=== PATIENT | female | born 1945 | race Caucasian/White ===

== ENCOUNTER 2024-07-03 09:21 | Inpatient (IN) | payer MEDICARE, OTHER, SELFPAY ==
--- NOTE | 2024-06-25 07:31 | HPS.HSE ---
Family Physician
-
Family Physician: Ely Aden,
Chief Complaint
-
PARR
History of Present Illness
Ms. Machado is a very pleasant 79 yof that presents with severe aortic stenosis well-known to our TAVR team. Her echocardiogram from 11/2021 is notable for a p/m 90/47, KT 0.75, mild AI, trace MR, EF 70%. Her cardiac catheterization demonstrated no
significant CAD. Initial evaluation and discussion with the heart team recommended conservative management. Patient continued to have some dyspnea and was brought back to the heart team for re-evaluation. She resides at [facility] and
participates in daily activities. Her mobility is limited due to orthopedic issues and she wheelchair bound, she also has severe kyphosis of neck causing a chronic downward gaze. After extensive discussion with the heart and the patient, it has
been concluded the patient will proceed with TF TAVR utilizing a 23 mm S3. Repeat echocardiogram from 06/25/2024 is significant for EF 70-75%, aortic valve P/M 89/64, KT 0.4, mild AI, pk Eddie 4.72, mild to moderate MS with MV MG 5, mild TR, PAP
40-45. BUN/Creatinine from preadmission labs 36/1.9 with GFR 26.53, labs compared to 01/21/2024 BUN/Creatinine 30/1.6 with GFR 31.
Assessed in preadmission testing. Patient will hold Xarelto x 48 prior to TAVR and take aspirin while Xarelto held. She will arrive to the [facility] at 0930 with transportation from [facility]. Medication instructions and time of
arrival written down and sent with patient to [facility]. Prescription for Cefdinir for UTI sent with patient. (Spoke with CHARLA Luo). Patient states she continues with nausea and states she has not had as much difficulty swallowing pills.
Allowed for and answered questions.
Medical History
Past Medical History
Past Medical History: Reports CHF (HFpEF), Hypothyroidism, Valvular Disease (Aortic stenosis) and Other (RLE DVT, lymphedema, hyperlipidemia, severe Kyphosis, depression, anxiety, CKD3, hypertensive retinopathy, cataracts, RUL pulmonary nodule,
moderate sliding hernia, wall thickening of distal esophagus, severe chronic compression fracture of T12, T9, L4)
Past Surgical History: Reports Gynocological (SCOTT, BSO), Orthopedic ((R) 2nd toe amputation, TRHR, (R) carpal tunnel sx) and Tonsilectomy
Social History
Tobacco: Non-smoker
Alcohol: None
Drug: None
Living: [facility]
Family History
Family History: Diabetes and Hypertension
Allergies / Home Medications
Allergies reflects when Allergies were last updated in [facility].
Home Medications with original date entered in [facility]
Allergy/Medication List:
Allergic to adhesive tape
Baclofen 10 MG Tablet 0.5 tablet Orally Once a day
Bumetanide 2 MG Tablet 1 tablet Orally bid and give 2mg in the afternoon MWF
Caltrate 600+D3(Calcium Carb-Cholecalciferol) 600-800 MG-UNIT Tablet 1 tablet with a meal Orally Once a day
Cyclobenzaprine HCl 5 MG Tablet 1 tablet at bedtime as needed Orally bid
Divalproex Sodium ER 250 MG Tablet Extended Release 24 Hour 1 tablet Orally Once a day , Notes to Pharmacist: am
Divalproex Sodium ER 500 MG Tablet Extended Release 24 Hour 1 tablet Orally Once a day , Notes to Pharmacist: pm
Famotidine 20 MG Tablet 1 tablet Orally bid
Gabapentin 100 MG Capsule 2 capsules Orally TID
Klor-Con M20(Potassium Chloride Flor ER) 20 MEQ Tablet Extended Release 1 tablet with food Orally qid
Lipitor(Atorvastatin Calcium) 10 MG Tablet 1 tablet Orally Once a day
Multivitamin(Multiple Vitamin) - Tablet 1 tablet Orally Once a day
Omeprazole 40 MG Capsule Delayed Release 1 capsule Orally bid
oxyBUTYnin Chloride 5 MG Tablet 1 tablet Orally bid
Synthroid(Levothyroxine Sodium) 100 MCG Tablet 1 tablet in the morning on an empty stomach Orally Once a day
Voltaren 1 % Gel as directed Externally
Xarelto 20 MG Tablet 1 tablet with food Orally Once a day
Review of Systems
-
History Source: Patient and [facility]
Constitutional: Reports No Symptoms
EENT: Reports No Symptoms
Respiratory: Reports No Symptoms
Cardiac: Reports No Symptoms
Abdomen/GI: Reports Nausea (chronic)
: Reports No Symptoms
Skin: Reports No Symptoms
Neurological: Reports No Symptoms
Psych: Reports No Symptoms
Physical Exam
Physical Exam
General: Well Developed, Well Nourished and No Apparent Distress
Respiratory: Clear
Cardiac: Regular Rhythm and Murmur (IV/ LISA)
Breast: Deferred by me
GI: Soft and Non Tender
Genito-urinary: Deferred by me
Musculoskeletal: Edema, Left Lower Extremity (Lymphedema), Edema, Right Lower Extremity (lymphedema) and Other (profound Kyphotic head with downward gaze)
Neuro: Awake and Alert
Psych: Calm
Data Reviewed
-
CT Scan: Report Reviewed by me and Discussed with Physician (TAVR CT scan reviewed with the heart team)
Medical Tests (Nuc Med, Echo, EKG etc): Report Reviewed by me and Discussed with Physician (echocardiogram and cath report reviewed and discussed with heart team)
Lab Data: Labs Reviewed by me
Old Records: Requested and Reviewed
Impression/Plan
-
IMPRESSION/PLAN:
Aortic Stenosis
(R) TF TAVR planned with Drs. oSto and Raghavendra utilizing a 23mm S3
Hold Xarelto x 48 hours (last dose Saturday 06/30) Aspirin 325mg (07/01), Aspirin 81 mg Sunday (07/02) and (07/03).
D/c aspirin when Xarelto is resumed
Repeat echo (06/25)
Echocardiogram POD#1/#30
Cardiac rehab consult
T/c OT/PT consult
Cefdinir 300 mg PO daily x 5 days for UTI
Labs
-
Labs:
WBC 5.2 10^3/uL (4.8-10.8) 06/25/24 12:17
RBC 3.67 10^6/uL (4.20-5.40) L 06/25/24 12:17
Hgb 9.1 g/dL (12.0-16.0) L 06/25/24 12:17
Hct 29.7 % (37.0-47.0) L 06/25/24 12:17
Plt Count 303 10^3/uL (130-400) 06/25/24 12:17
Sodium 144 mmol/L (135-145) 06/25/24 12:17
Potassium 4.7 mmol/L (3.5-5.1) 06/25/24 12:17
Chloride 97 mmol/L (98-107) L 06/25/24 12:17
Carbon Dioxide 33 mmol/L (22-30) H 06/25/24 12:17
BUN 36 mg/dl (7-17) H 06/25/24 12:17
Creatinine 1.9 mg/dL (0.6-1.0) H 06/25/24 12:17
eGFR 26.53 06/25/24 12:17
Glucose 104 mg/dl (70-99) H 06/25/24 12:17
Calcium 9.2 mg/dl (8.4-10.2) 06/25/24 12:17
Lau-G-Wppwjwdfwim Pept 1050 pg/ml 06/25/24 12:17
Albumin 4.1 g/dl (3.5-5.0) 06/25/24 12:17
[2024-06-25 12:01] VITALS: BMI 39.5
[2024-06-25 12:58] LABS: % Eosinophils 3.3 % (0-6); % Immature Granulocytes 0.2 % (0-0.5); % Lymphocytes 29.1 % (20.5-51.1); % Neutrophils 52.4 % (42.2-75.2); Absolute Basophils 0.1 10^3/uL (0-0.2); Absolute Eosinophils 0.2 10^3/uL (0-0.7); Absolute Lymphocytes 1.5 10^3/uL (1.2-3.4); Absolute Monocytes 0.7 10^3/uL (0.1-0.6); Absolute Neutrophils 2.7 10^3/uL (1.4-6.5); Hematocrit 29.7 % (37.0-47.0); Hemoglobin 9.1 g/dL (12.0-16.0); Mean Corp Hgb Conc. 30.6 g/dL (33.0-37.0); Mean Corpuscular Hgb 24.8 pg (27.0-31.0); Mean Corpuscular Volume 80.9 fL (81.0-99.0); Mean Platelet Volume 10.4 fL (7.4-10.4); Nucleated Red Blood Cells % 0 %; Platelet Count 303 10^3/uL (130-400); Red Blood Cell Count 3.67 10^6/uL (4.20-5.40); Red Cell Dist. Width 16.8 % (11.5-14.5); White Blood Cell Count 5.2 10^3/uL (4.8-10.8)
[2024-06-25 13:03] LABS: Urine Albumin Negative (Neg - Trace); Urine Bilirubin Negative (Negative); Urine Character Slightly Cloudy (Clear); Urine Color Yellow; Urine Glucose Negative (Negative); Urine Ketone Negative (Negative); Urine Leukocyte 1+ (Negative); Urine Nitrite Positive (Negative); Urine Occult Blood Negative (Negative); Urine Urobilinogen Negative (Neg - 1+)
[2024-06-25 13:08] LABS: INR 1.36; PT 16.9 Sec (11.4-14.6)
[2024-06-25 13:09] LABS: APTT 32.1 Sec (23.4-35.0)
[2024-06-25 13:10] LABS: ALT (SGPT) 15 U/L (0-35); AST (SGOT) 23 U/L (14-36); Albumin 4.1 g/dl (3.5-5.0); Alkaline Phosphatase 94 U/L (38-126); Blood Urea Nitrogen 36 mg/dl (7-17); Calcium 9.2 mg/dl (8.4-10.2); Carbon Dioxide 33 mmol/L (22-30); Chloride 97 mmol/L (98-107); Direct Bilirubin 0.2 mg/dl (0.0-0.4); Estimated Creatinine Clearance 27 ml/min; Glucose 104 mg/dl (70-99); Potassium 4.7 mmol/L (3.5-5.1); Sodium 144 mmol/L (135-145); Total Bilirubin 0.5 mg/dl (0.2-1.3); eGFR 26.53
[2024-06-25 13:14] LABS: Urine Urothelial Cell 0-2 /LPF (FEW)
[2024-06-25 13:15] LABS: Urine Bacteria Many (Negative); Urine White Cell >100 /HPF (0-5)
[2024-06-25 13:18] LABS: NT-proBNP 1050 pg/ml
[2024-06-25 13:36] LABS: Glycohemoglobin (HgbA1c) 7.3 % (4.0-5.6)
--- NOTE | 2024-06-25 15:20 | CM ---
"Chart reviewed. Met with the patient in PAT. 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 Reviewed preoperative and postoperative instructions and restrictions, along with showering guidelines. Gave patient 2 soaps. I also called Wolfgang Luo"charge nurse, at [phone] and reviewed instructions on medications and showering. Abhishek is the contact at [facility], . Patient is wheelchair bound and needs assistance with ADLS. Plan is for the patient to go back to [facility]. "
[2024-07-03] VITALS (17 sets, daily range): BP systolic 104–128; BP diastolic 52–67; BMI 39.1
--- NOTE | 2024-07-03 08:16 | PTCARENOTE ---
Call placed to [facility] to speak with staff to complete the pt's medication reconciliation prior to her procedure. A staff member Valerio RN stated 'she had her thyroid medicine and a baby aspirin sometime between
5:00-6:00 this morning.' Valerio refused to provide any other medication information including wether the Xarelto has been held since Saturday 06/30. While attempting to explain the importance of having this information prior to the pt's procedure Valerio
hung up the phone. A call was placed to administration at the [facility] and Soniya TIAN informed.
--- NOTE | 2024-07-03 10:16 | CM ---
Patient in OR today for planned TAVR procedure.
Reviewed initial assessment. Pt. is a long-term resident at [facility]. She is wheelchair bound and requires assist for ADLs.
DC plan is to return to [facility].
CM to follow.
[2024-07-03 12:36] LABS: ACT-LR - POC 234 Seconds (116-155)
[2024-07-03 12:45] LABS: ACT-LR - POC 284 Seconds (116-155)
[2024-07-03 13:07] LABS: ACT-LR - POC 290 Seconds (116-155)
--- NOTE | 2024-07-03 13:34 | W.PN.UPDATE ---
Update Note
Progress Note Update
Reviewed Ms. Machado with the heart team in the preTAVR SDM and confirmed a 23 mm S3 via right TF access. Ms. Machado will resume Xarelto and discontinue aspirin when Xarelto resumed post TAVR. #23 mm S3 (serial# [id number]) successfully deployed via
right transfemoral access. Post implant MG 9mmHg.
[2024-07-03] MEDS: ANCEF 10 IV (16:46)
[2024-07-03] MEDS: NEURONTIN 200 MG PO ×2 (16:47→22:18)
[2024-07-03] MEDS: DICLOFENAC 1% TOPICAL GEL TOPICAL (16:47)
--- NOTE | 2024-07-03 17:21 | ITS.CL.TAVR ---
Suppression Crew Leader - TAVR Report
TAVR PRocedure
Procedure Report:
TRANSCATHETER AORTIC VALVE REPLACEMENT REPORT
Date: 07/03/2024
Referring physician: Edi Rose M.D.
Preop diagnosis: Severe aortic valve stenosis.
Postop diagnosis: Severe aortic valve stenosis
Procedure: Aortic balloon valvuloplasty using a #18 [place] valvuloplasty balloon. Transcatheter aortic valve replacement (TAVR) using a #23 Cowan CHITRA S3 Ultra.
Operators: Miguel Soto DO, Chaka Escalante M.D., Ramírez Stevens M.D.
Findings: Severely calcified and stenotic aortic valve.
Anesthesia: Conscious sedation was provided by the anesthesia staff.
Estimated blood loss: Negligible.
Complications: None.
Condition: Stable
Procedure:
The patient was brought to the cardiac laboratory director after consent and was prepped and draped in standard sterile fashion. Conscious sedation was provided by the anesthesia staff. After a 'Time Out,' bilateral common femoral arteries and the left
common vein were access using a modified Seldinger technique with a micropuncture kit under ultrasound guidance. A 6 Samoan sheath was placed in the left femoral vein. Angiography performed through the micropuncture sheath confirmed satisfactory
arterial placement in the left common femoral artery. The micropuncture sheath was replaced with a 6Fr sheath in the left MANAGER COMMODITIES. Angiography through the micropuncture kit confirmed satisfactory arterial placement in the right common femoral artery.
The right MANAGER COMMODITIES was dilated with an 8FR dilator and preclosed with two Perc-Close devices. An 8Fr sheath was placed in the RCFA.
Unfortunately, during the placement of the other sheaths in the left side, the 8 Samoan right common femoral sheath was dislodged. We attempted to rewire the artery through the sheath, but the artery had completely exited the vessel lumen. The
right common femoral artery was closed using the predeployed Perclose sutures. Manual pressure was held with good hemostasis.
A temporary pacing wire was advanced through the left femoral vein and into the right ventricle. The pacemaker demonstrated good capture and was set to back up. A 5Fr pigtail catheter was advanced through the left femoral sheath and into the
distal aorta. Distal aortography with runoff of the right iliofemoral system was performed showing excellent hemostasis within the right common femoral artery at the site of prior access. The pigtail was advanced into the ascending aorta and
seated in the right coronary cusp. Angiography confirmed co-planar angles.
The right common femoral artery was reaccessed at a slightly lower position given the thankfully low bifurcation of the right common femoral artery. After satisfactory positioning with a micropuncture kit, the artery was preclosed with 2 additional
Perclose sutures. An 8 Samoan sheath was placed in the right common femoral artery. Unfortunately, there was significant oozing around the 8 Samoan sheath, expediting our need to place the TAVR sheath to tamponade the vessel. An AL-1 catheter was
advanced through the 8Fr sheath, the J wire was exchanged for an Amplatz Superstiff wire and the catheter and the 8 Fr sheath was removed. The 14 Fr Cowan E-sheath was inserted over the wire and into the descending aorta. Heparin 8000 units was
given. The CHITRA S3 was prepared on the back table. Orientation was confirmed by both physicians. The AL-1 catheter was re-advanced through the E-sheath to the level of the ascending aorta. The Superstiff wire was removed and a soft tip
straight wire was advanced through the AL-1. The straight tip wire was used to cross the aortic valve and the catheter was advanced into the left ventricle. The straight wire was removed and an Amplatz Extrastiff wire with curved proximal end was
advanced through the catheter and into the left ventricle. The wire was seated in the apex and the catheter was removed. ACT was checked and confirmed to be > 250 seconds.
An #18 [place] valvuloplasty balloon was advanced over the Extra-stiff wire and into the aortic annulus. Valvuloplasty was performed under rapid pacing with good balloon expansion. The valvuloplasty balloon was removed.
The valve was advanced over the Extrastiff wire and into the descending aorta. The balloon was withdrawn and the valve was mounted on the balloon. The valve was advanced over the aortic arch and into the aortic valve annulus. The pusher device
was withdrawn to allow for balloon expansion. Low volume aortography confirmed good position of the valve. The valve was deployed during rapid ventricular pacing. Echocardiography and aortography confirmed a good result with trace aortic valve
insufficiency and a 9 mmHg mean gradient. The valve deployment system was removed. The Cowan E sheath was then removed and hemostasis obtained with the two Perc-Close sutures. Final angiography demonstrated no evidence of ileofemoral
dissection/perforation and good runoff below the common femoral artery. The pacemaker and the pigtail catheter were removed. The left femoral artery sheath was removed using a 6 Samoan Angio-Seal. The left femoral venous sheath was removed and
manual pressure was applied with excellent hemostasis.
Radiation
Dose (mGy): 987.71
DAP (cm2.Gy): 84.4468
Fluoroscopy time (minutes): 17.1
TAVR Echo Gradient (mmHg): 9
LV (s/x, mmHg): Not obtained.
TAVR Cath Gradient (mmHg): Not obtained.
Conclusions:
1. Successful placement of #23 Chitra S3 Ultra aortic valve via right transfemoral approach with no acute complications.
2. Dr. Stevens was present for all significant portions of the procedure.
Miguel Soto DO, FACC, FACP
Copy to: Ely Aden D.O.
[2024-07-03] MEDS: ANCEF 5 IV (17:56)
[2024-07-03] MEDS: LIPITOR 10 MG PO (17:56)
[2024-07-03] MEDS: DICLOFENAC 1% TOPICAL GEL 2 GRAM TOPICAL ×2 (18:04→22:19)
--- NOTE | 2024-07-03 18:42 | PTCARENOTE ---
Received pt post TAVR. Vss,GCS 15. Nasal cannula at 2 liters w/ pulse ox of >96%. Orders noted. Neurological checks per MD order. B/L groin sites w/ dressings intact, no redness, swelling or hematoma.
[2024-07-03] MEDS: BenGay-Like 1 APPLIC TOPICAL (20:39)
[2024-07-03] MEDS: FLEXERIL 5 MG PO (20:39)
[2024-07-03] MEDS: DITROPAN 5 MG PO (20:40)
[2024-07-03] MEDS: PROTONIX 40 MG PO (20:40)
[2024-07-03] MEDS: DEPAKOTE ER (24 HR RELEASE) 500 MG PO (22:18)
[2024-07-03] MEDS: LIORESAL 5 MG PO (22:18)
[2024-07-03] MEDS: PEPCID 20 MG PO (22:18)
--- NOTE | 2024-07-03 23:23 | PTCARENOTE ---
Addendum entered by Alex Cr RN 07/03/24 23:50:
Maalox given for indigestion, see mar.
Original Note:
assumed care of patient at 2300. AAOx3. neuro intact. NSR 80s. bp 132/87. L groin CDI. R groin-continued oozing. dressing changed by prior RN. sandbag reapplied. + pulses/edema noted. patient denies any pain. denies SOB. complains of
indigestion-requested hayley alison. reviewed plan of care with patient and verbalized understanding. educated patient to inform RN with any changes. call kirk within reach.
[2024-07-03] MEDS: MAALOX 30 ML PO (23:48)
[2024-07-04] VITALS (8 sets, daily range): BP systolic 98–146; BP diastolic 53–73; BMI 35.5
--- NOTE | 2024-07-04 02:00 | PTCARENOTE ---
R groin dressing saturated. 10 minutes manual pressure held by RN. another 30 minutes of manual pressure held by Breonna MORGAN PA. steri strip applied. hemostasis pad, gauze/tegaderm. small hematoma pressed out. currently-groin site soft, dressing CDI.
+ pulses.
[2024-07-04 04:33] LABS: Hematocrit 24.8 % (37.0-47.0); Hemoglobin 8.1 g/dL (12.0-16.0); Mean Corp Hgb Conc. 32.7 g/dL (33.0-37.0); Mean Corpuscular Hgb 25.5 pg (27.0-31.0); Mean Platelet Volume 10.7 fL (7.4-10.4); Platelet Count 240 10^3/uL (130-400); Red Blood Cell Count 3.18 10^6/uL (4.20-5.40); Red Cell Dist. Width 15.9 % (11.5-14.5); White Blood Cell Count 9.1 10^3/uL (4.8-10.8)
[2024-07-04 04:55] LABS: Blood Urea Nitrogen 32 mg/dl (7-17); Calcium 8.7 mg/dl (8.4-10.2); Carbon Dioxide 30 mmol/L (22-30); Chloride 91 mmol/L (98-107); Estimated Creatinine Clearance 40 ml/min; Glucose 141 mg/dl (70-99); Magnesium 1.8 mg/dl (1.6-2.3); Potassium 4.1 mmol/L (3.5-5.1); Sodium 136 mmol/L (135-145); eGFR 41.83
--- NOTE | 2024-07-04 05:15 | PTCARENOTE ---
patient complaining of itchy perineum overnight. purewick removed at 0001. patient continues to complain. Breonna BELLO aware-fungal cream ordered. perineum care provided by both RN and PCT multiple times. no rash noted at this time. instructed
patient to use bed clarke. + UTI as of 06/25/24-per medical history. per PA, patient treated for UTI preop.
--- NOTE | 2024-07-04 06:04 | W.PN.CT ---
Today's Communication / Plan
-
-pod #1
-mild persistent oozing at R groin, no pain - tx with Innoseal patch, manual pressure for 30 min and sandbag
-c/o 'itching' with voiding, tried ketoconazole cream. Had Ecoli UTI preop- was treated with Omnicef
-in nsr 80s, no phill or pauses
-pOx 87-88% on RA and 92-96% on 2L
-Echo today
-current meds (Xarelto, Lipitor, Bumex 3mg bid, KCL, Pepcid, Protonix bid, Depakote, Flexeril, Baclofen)
-possible d/c (resides at [facility])
Assessment / Plan
-
- Severe symptomatic - s/p R transfemoral TAVR with placement of #23 Chitra S3 Ultra aortic valve on 07/03/24, pod #1
- Intraop TTE: trace aortic valve insufficiency and a 9 mmHg mean gradient.
- HTN/HLD
- Chronic systolic and diastolic CHF
- EF 60-65%
- Dysphagia/GERD
- RLE DVT with chronic anticoagulation (on Xarelto at home)
- CKD 3b (baseline Cr 1.9)
- Kyphosis, severe
- Ambulatory dysfunction (resides in half-way [facility])
- Chronic acquired lymphedema
- Large sliding hiatal hernia
- DDD
- Bipolar
- Hypothyroidism
- Anxiety/Depression
- Class 2 obesity, BMI 39)
- Chronic pain syndrome
- Mild cognitive impairment
Discussed patient care with: Nursing and Care Team
Subjective
Procedure
- s/p R transfemoral TAVR with placement of #23 Chitra S3 Ultra aortic valve on 07/03/24
-
Date of Service: July 03, 2024
Objective Data
-
Lab Results
06/25/24 12:17
06/25/24 12:17
PT 16.9 Sec (11.4-14.6) H 06/25/24 12:17
INR 1.36 06/25/24 12:17
APTT 32.1 Sec (23.4-35.0) 06/25/24 12:17
Vital Signs
Vital Signs
Temp Pulse Resp BP Pulse Ox
97.5 F 77 20 128/55 92
07/03/24 19:24 07/03/24 22:30 07/03/24 19:24 07/03/24 22:30 07/03/24 22:30
CT Intake/Output/Weight
07/03/24 07/03/24 07/04/24
06:59 18:59 06:59
Intake Total 1500 / 1500
Balance 1500 / 1500
SaO2: 92
Physical Exam
-
General: Awake and AOx3
Cardiovascular: Regular rate & rhythm
Respiratory: Decreased Breath Sounds
Incision: Other (groins are nontende, no hematoma b/l. R groin with small amount persistent subcutaneous oozing, small hematoma- improved with manual compression)
Extremities: Edema +1 (1+ DP palpable b/l)
Data Reviewed
-
Lab Results: Results Reviewed
Medications: Active Meds Reviewed
Chest X-Ray: Report Reviewed and Image Reviewed
ECG: Report Reviewed and Image Reviewed
--- NOTE | 2024-07-04 07:10 | W.PN.CT.SURG ---
CT Surgery Operative Note
-
DOS: 07.03.2024
Preop diagnosis: Severe aortic valve stenosis.
Postop diagnosis: Severe aortic valve stenosis
Procedure: Aortic balloon valvuloplasty using a #18 [place] valvuloplasty balloon. Transcatheter aortic valve replacement (TAVR) using a #23 Cowan CHITRA S3 Ultra.
Operators: Miguel Soto DO, Chaka Escalante M.D., Ramírez Stevens M.D.
Findings: Severely calcified and stenotic aortic valve.
Anesthesia: Conscious sedation was provided by the anesthesia staff.
Estimated blood loss: Negligible.
Complications: None.
Condition: Stable
Procedure:
The patient was brought to the cardiac label tacker after consent and was prepped and draped in standard sterile fashion. Conscious sedation was provided by the anesthesia staff. After a 'Time Out,' bilateral common femoral arteries and the left
common vein were access using a modified Seldinger technique with a micropuncture kit under ultrasound guidance. A 6 Andorran sheath was placed in the left femoral vein. Angiography performed through the micropuncture sheath confirmed satisfactory
arterial placement in the left common femoral artery. The micropuncture sheath was replaced with a 6Fr sheath in the left LEATHER CURRIER. Angiography through the micropuncture kit confirmed satisfactory arterial placement in the right common femoral artery.
The right LEATHER CURRIER was dilated with an 8FR dilator and preclosed with two Perc-Close devices. An 8Fr sheath was placed in the RCFA.
Unfortunately, during the placement of the other sheaths in the left side, the 8 Andorran right common femoral sheath was dislodged. We attempted to rewire the artery through the sheath, but the artery had completely exited the vessel lumen. The
right common femoral artery was closed using the predeployed Perclose sutures. Manual pressure was held with good hemostasis.
A temporary pacing wire was advanced through the left femoral vein and into the right ventricle. The pacemaker demonstrated good capture and was set to back up. A 5Fr pigtail catheter was advanced through the left femoral sheath and into the
distal aorta. Distal aortography with runoff of the right iliofemoral system was performed showing excellent hemostasis within the right common femoral artery at the site of prior access. The pigtail was advanced into the ascending aorta and
seated in the right coronary cusp. Angiography confirmed co-planar angles.
The right common femoral artery was reaccessed at a slightly lower position given the thankfully low bifurcation of the right common femoral artery. After satisfactory positioning with a micropuncture kit, the artery was preclosed with 2 additional
Perclose sutures. An 8 Andorran sheath was placed in the right common femoral artery. Unfortunately, there was significant oozing around the 8 Andorran sheath, expediting our need to place the TAVR sheath to tamponade the vessel. An AL-1 catheter was
advanced through the 8Fr sheath, the J wire was exchanged for an Amplatz Superstiff wire and the catheter and the 8 Fr sheath was removed. The 14 Fr Cowan E-sheath was inserted over the wire and into the descending aorta. Heparin 8000 units was
given. The CHITRA S3 was prepared on the back table. Orientation was confirmed by both physicians. The AL-1 catheter was re-advanced through the E-sheath to the level of the ascending aorta. The Superstiff wire was removed and a soft tip
straight wire was advanced through the AL-1. The straight tip wire was used to cross the aortic valve and the catheter was advanced into the left ventricle. The straight wire was removed and an Amplatz Extrastiff wire with curved proximal end was
advanced through the catheter and into the left ventricle. The wire was seated in the apex and the catheter was removed. ACT was checked and confirmed to be > 250 seconds.
An #18 [place] valvuloplasty balloon was advanced over the Extra-stiff wire and into the aortic annulus. Valvuloplasty was performed under rapid pacing with good balloon expansion. The valvuloplasty balloon was removed.
The valve was advanced over the Extrastiff wire and into the descending aorta. The balloon was withdrawn and the valve was mounted on the balloon. The valve was advanced over the aortic arch and into the aortic valve annulus. The pusher device
was withdrawn to allow for balloon expansion. Low volume aortography confirmed good position of the valve. The valve was deployed during rapid ventricular pacing. Echocardiography and aortography confirmed a good result with trace aortic valve
insufficiency and a 9 mmHg mean gradient. The valve deployment system was removed. The Cowan E sheath was then removed and hemostasis obtained with the two Perc-Close sutures. Final angiography demonstrated no evidence of ileofemoral
dissection/perforation and good runoff below the common femoral artery. The pacemaker and the pigtail catheter were removed. The left femoral artery sheath was removed using a 6 Andorran Angio-Seal. The left femoral venous sheath was removed and
manual pressure was applied with excellent hemostasis.
Radiation
Dose (mGy): 987.71
DAP (cm2.Gy):84.4468
Fluoroscopy time (minutes):17.1
TAVR Echo Gradient (mmHg):9
LV (s/x, mmHg):Not obtained.
TAVR Cath Gradient (mmHg):Not obtained.
Conclusions:
1. Successful placement of #23 Chitra S3 Ultra aortic valve via right transfemoral approach with no acute complications.
2. Dr. Stevens was present for all significant portions of the procedure.
Dr Stevens
[2024-07-04] MEDS: THERAGRAN 1 TABLET PO (08:28)
[2024-07-04] MEDS: KCL 20 MEQ PO ×4 (08:28→22:09)
[2024-07-04] MEDS: OSCAL CAL 500 1000 MG PO (08:29)
[2024-07-04] MEDS: SYNTHROID 100 MCG PO (08:29)
[2024-07-04] MEDS: DEPAKOTE ER (24 HR RELEASE) 250 MG PO (08:29)
[2024-07-04] MEDS: BUMEX 3 MG PO ×2 (08:30→17:18)
[2024-07-04] MEDS: FLEXERIL 5 MG PO ×2 (08:31→19:36)
[2024-07-04] MEDS: NIZORAL 2% CREAM 1 APPLIC TOPICAL (08:33)
[2024-07-04] MEDS: PROTONIX 40 MG PO ×2 (08:33→19:36)
[2024-07-04] MEDS: NEURONTIN 200 MG PO ×3 (08:33→22:09)
[2024-07-04] MEDS: BenGay-Like 1 APPLIC TOPICAL ×2 (08:34→19:36)
[2024-07-04] MEDS: DICLOFENAC 1% TOPICAL GEL 2 GRAM TOPICAL ×4 (08:34→22:10)
--- NOTE | 2024-07-04 09:54 | PTCARENOTE ---
Assumed care of pt from night RN. Pt received awake and alert, Ox3. VSs, CM shows NSR 90's, POX 93-95% on 3 l n/c. Fungal cream applied to jose manuel area for itching. Right groin intact, old drg stable. Pt speech garbled which is her baseline.
Taking pills with thin liquids. She offers no c/o pain or discomfort at this time. Turned q 2h for comfort.
[2024-07-04] MEDS: DITROPAN 5 MG PO ×2 (10:02→19:37)
--- NOTE | 2024-07-04 10:54 | CM ---
Addendum entered by Charlotte Olson 07/04/24 14:28:
Mrs. Machado is not ready for transfer back to [facility] today. She maybe ready for transfer tomorrow. Telephone call to [facility] Admission to update them on tentative discharge date. Nurse will have to call report for them to take her
back on Sunday. Spoke with transfer center who states [facility] will provide BLS ambulance and charge wheelchair van rate. She has her own wheelchair here. Case Management will cover the cost of transportation. Will need to tell transfer
center to bill [facility] Case Management. Updated Mrs. Machado regarding discharge plans. Medical work-up in progress. The discharge plan is to return to [facility] when medically stable.
Addendum entered by Charlotte Olson 07/04/24 14:28:
Gave him the Cardiothoracic Surgery Educational Booklet.
Original Note:
Reviewed chart. Met with Mrs. Machado to review discharge plans. She states she is feeling well. She maybe able to return to [facility] soon. She states she can ambulated short distances with a walker. She states she also uses a
wheelchair. She states the staff assist her her ADLS. Telephone call to [facility] Admission yesterday to update them regarding possible discharge date. The telephone call for report is ([phone]) and the fax number is
([phone]). Medical work-up in progress. The discharge plan is to return to [facility] when medically stable.
[2024-07-04] MEDS: LASIX 40 MG IV (12:28)
--- NOTE | 2024-07-04 12:44 | PTCARENOTE ---
Lasix 40 mg IV given as ordered.
--- NOTE | 2024-07-04 13:09 | W.PN.ANS.POP ---
Anesthesia Post Operative
- Anesthesia Post Op Note
Vital Signs Stable-See Nursing Note: Yes
Airway Patent: Yes
Adequate Pain Control: Yes
Change in Mental Status: No
Current Postoperative Nausea & Vomiting: No
Anesthesia Complications: No
General Anesthetic Recall: No
Unplanned Admission: No
Post Op Hydration Adequate: Yes
--- NOTE | 2024-07-04 13:48 | W.PN.CD ---
Today's Communication / Plan
-
Check UA.
[facility] US.
Agree with IV diuresis.
Discharge planning (likely tomorrow).
Impression / Plan
-
Impression/Plan: 79 y/o female with severe DDD/cervical spine disease, severe kyphoscoliosis, chronic lymphedema, HTN, CKD3 and severe aortic valve stenosis admitted for elective TAVR.
#Severe
-Chronic.
-S/P #23 Cowan CHITRA S3 TAVR via right common femoral approach.
-Procedure complicated by dislodged 8Fr sheath, closed with perclose devices, then reaccessed lower in the BLOCK CLEANER.
-Telemetry is uneventful.
-Antithrombotic therapy with rivaroxaban.
-Given hold overnight, progressive anemia and tenderness, we will check a femoral artery US to r/o PSA/AVF.
#Urogenital pruritis/Overactive bladder
-Acute.
-Check UA.
-CTS ordered ketoconazole cream.
-Continue oxybutynin.
#HFpEF
-Acute on chronic.
-IV furosemide 40 mg given today.
-Continue home bumetanide.
#Hx of DVT
-Chronic.
-Therapeutic anticoagulation with rivaroxaban.
#CKD3
-Stable/improved.
-Creatinine 1.3 (prior baseline 1.9).
#Hyperlipidemia
-Chronic.
-Continue atorvastatin.
#Chronic lymphedema
#Bipolar
#Osteoporosis
Subjective/Interval History:
Overnight, [employer] held pressure on left groin for some oozing.
She still complains of some local tenderness.
She is also complaining of urogenital pruritis but denies dyruria.
She remains hypoxic on 2LNC.
Hbg has dropped from 9.1 --> 8.1.
DATA:
TTE, 07/04/2024:
CONCLUSIONS
Hyperdynamic left ventricular systolic function. Left ventricular ejection
fraction is 70-75%.
Stage II diastolic dysfunction suggestive of abnormal relaxation and increased
filling pressures.
s/p TAVR. Cowan Chitra 23. Peak/mean gradients are 27/15mmHg. No aortic
regurgitation is seen.
No pericardial effusion.
Compared to 07/03/24: prior TAVR gradients were 16/9 mmHg, with trace AR.
TAVR, 07/03/2024:
Conclusions:
1. Successful placement of #23 Chitra S3 Ultra aortic valve via right transfemoral approach with no acute complications.
2. Dr. Stevens was present for all significant portions of the procedure.
Physical Exam
Vital Signs/Labs
Vital Signs
Temp Pulse Resp BP Pulse Ox
36.9 C 94 20 146/73 95
07/04/24 11:23 07/04/24 12:30 07/04/24 11:23 07/04/24 11:26 07/04/24 12:30
07/03/24 07/04/24 07/05/24
11:59 11:59 11:59
Actual Weight 100 kg 90.8 kg
07/04/24 03:49
07/04/24 03:49
PT 16.9 Sec (11.4-14.6) H 06/25/24 12:17
INR 1.36 06/25/24 12:17
APTT 32.1 Sec (23.4-35.0) 06/25/24 12:17
Magnesium 1.8 mg/dl (1.6-2.3) 07/04/24 03:49
06/25/24
12:17
Mrz-Q-Sfwzagpgkmi Pept 1050
Physical Exam
Constitutional: No acute distress and Comfortable
EENT: Anicteric and Moist mucous membranes
Cardiovascular: Rhythm & rate is regular, JVD pressure is normal, Pedal edema present (Chronic, non-pitting.), S1S2 is normal and Murmur/rub/gallop absent
Respiratory: Respiratory effort normal, Lungs clear to auscul., Wheeze Absent, Crackles Absent and Rhonchi Absent
GI: Soft, Distention absent, Flat, Non tender and Normal bowel sounds
Neuro/Psych: AO x 3
Other: Cath Site (Left femoral access site is C/D/I. Right femoral access site is covered with a dressing, mildly tender to palpation.)
Data Reviewed
-
Date of Service: July 04, 2024
Medical Decision Making: Reviewed Test Results, Tests Ordered, Independent Historian Assessment, Test Interpretation and Review of Case with other Provider
EKG: Tracing Personally Visualized and interpreted and Report Reviewed by me
Echo: Tracing Personally Visualized and interpreted and Report Reviewed by me
X-Ray/CT/US/MRI/NUC/PET: Image Personally Visualized and interpreted and Report Reviewed by me
Medical Tests (PFT, Pathology etc): Image Personally Visualized and interpreted and Report Reviewed by me
Labs: Labs Reviewed by me
Old Records: Reviewed
[2024-07-04 16:37] LABS: Urine Albumin Negative (Neg - Trace); Urine Bilirubin Negative (Negative); Urine Character Clear (Clear); Urine Color Yellow; Urine Glucose Negative (Negative); Urine Ketone Negative (Negative); Urine Leukocyte Trace (Negative); Urine Nitrite Negative (Negative); Urine Occult Blood Negative (Negative); Urine Specific Gravity 1.005 (<1.030); Urine Urobilinogen Negative (Neg - 1+)
[2024-07-04 16:53] LABS: Urine Bacteria Few (Negative); Urine Red Blood Cell 0-2 /HPF (0-2); Urine Urothelial Cell 0-2 /LPF (FEW); Urine White Cell 0-2 /HPF (0-5)
[2024-07-04] MEDS: XARELTO 20 MG PO (17:19)
[2024-07-04] MEDS: LIPITOR 10 MG PO (17:21)
--- NOTE | 2024-07-04 20:39 | PTCARENOTE ---
Pt. received at change of shift. Pt. seen and assessed in room. Pt. AOx3, 4L NC O2, continuous pulse ox reading 93-96%. VS WNL. Tele reading NSR in the 80s. No complaints of pain at this time. Call kirk within reach. Continuing to monitor at this
time.
[2024-07-04] MEDS: LIORESAL 5 MG PO (22:08)
[2024-07-04] MEDS: DEPAKOTE ER (24 HR RELEASE) 500 MG PO (22:09)
[2024-07-04] MEDS: PEPCID 20 MG PO (22:10)
[2024-07-05 02:35] VITALS: BP 131/59
[2024-07-05 02:37] VITALS: BP 131/59
[2024-07-05 02:40] VITALS: BMI 34.6
[2024-07-05 05:25] LABS: Hematocrit 25.3 % (37.0-47.0); Hemoglobin 8.2 g/dL (12.0-16.0); Mean Corp Hgb Conc. 32.4 g/dL (33.0-37.0); Mean Corpuscular Hgb 25.2 pg (27.0-31.0); Mean Corpuscular Volume 77.8 fL (81.0-99.0); Mean Platelet Volume 10.4 fL (7.4-10.4); Platelet Count 215 10^3/uL (130-400); Red Blood Cell Count 3.25 10^6/uL (4.20-5.40); Red Cell Dist. Width 16.4 % (11.5-14.5); White Blood Cell Count 9.1 10^3/uL (4.8-10.8)
[2024-07-05 05:48] LABS: Blood Urea Nitrogen 31 mg/dl (7-17); Calcium 8.8 mg/dl (8.4-10.2); Carbon Dioxide 36 mmol/L (22-30); Chloride 94 mmol/L (98-107); Estimated Creatinine Clearance 40 ml/min; Glucose 149 mg/dl (70-99); Magnesium 1.7 mg/dl (1.6-2.3); Potassium 3.7 mmol/L (3.5-5.1); Sodium 141 mmol/L (135-145); eGFR 46.05
--- NOTE | 2024-07-05 06:56 | W.PN.CT ---
Today's Communication / Plan
-
-pod #2
-looks and feels better
-groins appear stable, soft b/l, no hematoma. s/p R groin US 07/04- report pending
-Echo 07/04: AV Peak/mean gradients are 27/15mmHg. No aortic regurgitation is seen
-diuresed 07/04 (UO unmeasured/incontinent)
-wean off O2 as tolerated
-possible d/c
Assessment / Plan
-
- Severe symptomatic - s/p R transfemoral TAVR with placement of #23 Chitra S3 Ultra aortic valve on 07/03/24, pod #2
- Intraop TTE: trace aortic valve insufficiency and a 9 mmHg mean gradient.
- HTN/HLD
- Chronic systolic and diastolic CHF
- EF 60-65%
- Dysphagia/GERD
- RLE DVT with chronic anticoagulation (on Xarelto at home)
- CKD 3b (baseline Cr 1.9)
- Kyphosis, severe
- Ambulatory dysfunction (resides in skilled nursing [facility])
- Chronic acquired lymphedema
- Large sliding hiatal hernia
- DDD
- Bipolar
- Hypothyroidism
- Anxiety/Depression
- Class 2 obesity, BMI 39)
- Chronic pain syndrome
- Mild cognitive impairment
Echo 07/04/24:
Hyperdynamic left ventricular systolic function. Left ventricular ejection fraction is 70-75%.
Stage II diastolic dysfunction suggestive of abnormal relaxation and increased filling pressures.
s/p TAVR. Cowan Chitra 23. Peak/mean gradients are 27/15mmHg. No aortic regurgitation is seen.
No pericardial effusion.
Compared to 07/03/24: prior TAVR gradients were 16/9 mmHg, with trace AR.
Discussed patient care with: Nursing and Care Team
Subjective
Procedure
- s/p R transfemoral TAVR with placement of #23 Chitra S3 Ultra aortic valve on 07/03/24
-
Date of Service: July 05, 2024
Objective Data
-
PT 16.9 Sec (11.4-14.6) H 06/25/24 12:17
INR 1.36 06/25/24 12:17
APTT 32.1 Sec (23.4-35.0) 06/25/24 12:17
Vital Signs
Vital Signs
Temp Pulse Resp BP Pulse Ox
98.1 F 85 20 131/59 95
07/05/24 02:37 07/05/24 02:37 07/05/24 02:37 07/05/24 02:37 07/05/24 02:37
CT Intake/Output/Weight
07/04/24 07/04/24 07/05/24
06:59 18:59 06:59
Intake Total 650 / 2150 950 / 950
Output Total 200 / 200 725 / 725
Balance 450 / 1950 225 / 225
SaO2: 95
Physical Exam
-
General: Awake and AOx3
Cardiovascular: Regular rate & rhythm, No Murmurs and No Rub
Respiratory: Decreased Breath Sounds
Incision: Other (both groins are soft, nontender. R groin with bruising. No hematoma b/l)
Extremities: Other (trace edema b/l)
Data Reviewed
-
Lab Results: Results Reviewed
Medications: Active Meds Reviewed
Chest X-Ray: Report Reviewed and Image Reviewed
ECG: Report Reviewed and Image Reviewed
[2024-07-05 07:09] VITALS: BP 124/56
[2024-07-05] MEDS: SYNTHROID 100 MCG PO (07:09)
[2024-07-05] MEDS: FLEXERIL 5 MG PO (08:37)
[2024-07-05] MEDS: MAGNESIUM OXIDE 500 MG PO (08:37)
[2024-07-05] MEDS: PROTONIX 40 MG PO (08:37)
[2024-07-05] MEDS: OSCAL CAL 500 1000 MG PO (08:37)
[2024-07-05] MEDS: NEURONTIN 200 MG PO (08:37)
[2024-07-05] MEDS: BUMEX 3 MG PO (08:37)
[2024-07-05] MEDS: THERAGRAN 1 TABLET PO (08:38)
[2024-07-05] MEDS: FLUSH (NSS) 1 FLUSH IV (08:38)
[2024-07-05] MEDS: DEPAKOTE ER (24 HR RELEASE) 250 MG PO (08:38)
[2024-07-05] MEDS: KCL 20 MEQ PO ×2 (08:38→13:31)
[2024-07-05] MEDS: BenGay-Like 1 APPLIC TOPICAL (08:39)
[2024-07-05] MEDS: NIZORAL 2% CREAM 1 APPLIC TOPICAL (08:39)
[2024-07-05] MEDS: DICLOFENAC 1% TOPICAL GEL 2 GRAM TOPICAL ×2 (08:40→13:32)
--- NOTE | 2024-07-05 10:35 | PTCARENOTE ---
The patient is aaox3 but forgetful at times. Vital signs are stable. NSR is noted on the monitor. 90% on RA. Her lungs are clear with an occasional moist cough. Notable kyphosis in upper back/neck. BL groin site dressing are c/d/i. The surrounding
skin BL is ecchymotic but soft.
--- NOTE | 2024-07-05 10:56 | W.DCSUMMARY ---
Discharge Summary
Discharge Data
Date of Admission: 07/03/24
Date of Discharge: 07/05/24
Total time spent discharging patient (in min): 28
-
Pending Results: No
Hospital Course
Primary care physician:
Dr. Ely Tavares
Outpatient concrete precast moulder:
Dr. Miguel Hu
Inpatient consultants:
CBC
Procedures:
1. Right transfemoral transcatheter aortic valve replacement with #23 JUSTIN S3 ultra aortic valve
Primary Diagnosis:
1. Severe aortic stenosis
Secondary Diagnoses:
1. Ambulatory dysfunction
2. Dysphagia
3. Chronic lymphedema
4. Hypothyroidism
5. Hypertension
6. Right lower extremity DVT
7. Chronic kidney disease stage III
8. Severe kyphosis
9. Large sliding hiatal hernia
10. Anxiety
11. Morbid obesity
HPI: 79-year-old female presented electively on 07/03 for a transfemoral TAVR.
Hospital course:
Patient presented electively on 07/03 for a transfemoral TAVR. Procedure went well in the Still Operator and was in the Still Operator recovery area she remained stable and was sent to IVU for the remainder of her recovery. Her right groin was mildly oozy and
overnight manual pressure was held. On 07/04 postoperative day #1 patient was diuresed with an additional 40 mg of IV Lasix. Due to her right groin being tender and ultrasound was performed and it was stable. A postoperative echocardiogram was
also done which showed a hyperdynamic LV function with EF 70-75% and the new aortic valve peak/mean gradients were 27/15 mmHg. On 07/05, postoperative day #2 patient remained stable and was deemed safe to go back to [facility].
Home medication changes:
No changes
Discharge Plan
-
Patient Disposition: [facility]cf/SNF
Discharge Diagnosis/Procedures: TF TAVR
Condition: Fair
Diet: Low Fat, Low Cholesterol and 2 Gram Sodium
Activity: As tolerated
Driving Restrictions: No driving for 1 week
Bathing Restrictions: OK to Shower
Blood Work: Obtain BMP in one week please
Others Tests: 30-day follow up echocardiogram: 07/28/2024 @ 2:00
Other Services: Cardiac Rehab
Wound Care: No lotions, powders, or creams to puncture sites
Specialty Instructions: Weigh Daily- Call MD for wt gain/loss 3 lbs overnight/5 lbs in 1 week
Instructions: Aortic Valve Replacement, Transcatheter (DC)
Referrals:
[facility], [facility] [Other]
Miguel Hu DO [Non-Admitting Privileges] - 08/01/24 1:00 pm (Please note: This appointment is with Dr. Hu's nurse practitioner: ASMITA Trinidad.)
Ely Aden DO [Family Provider] - in four to six weeks (Please make an appointment in four to six weeks. )
Prescriptions:
Continued
atorvastatin 10 MG tablet
10 mg PO QPM
omeprazole 40 MG capsule,delayed release(DR/EC)
40 mg PO BID
divalproex 500 MG tablet extended release 24 hr
500 mg PO HS
bumetanide 1 MG tablet
3 mg PO BID
gabapentin 100 MG capsule
200 mg PO TID
divalproex 250 MG tablet extended release 24 hr
250 mg PO DAILY
potassium chloride 20 MEQ tablet extended release
20 meq PO QID
calcium 500 mg Tablet
1,000 mg PO DAILY
baclofen 10 mg Tablet
5 mg PO HS
Rx Instructions:
0.5 TAB
bisacodyl 10 mg Suppository
10 mg IN PRN PRN (Reason: CONSTIPATION/IF MOM INEFFECTIVE)
sodium phosphates 19-7 gram/118 mL Enema
118 ml IN PRN PRN (Reason: CONSTIPATION IF NO RESULTS AFTER ADMIN BISACODYL)
Rx Instructions:
INSERT 1 APPLICATION RECTALLY [id number] FOR CONSTIPATION 1 TIME A DAY IF NO RESULT AFTER ADMINISTERING BISACODYL
cyclobenzaprine 5 mg Tablet
5 mg PO BID
multivitamin Tablet
1 tab PO DAILY
acetaminophen [Tylenol] 325 mg Tablet
650 mg PO Q6H PRN (Reason: MODERATE PAIN/TEMP.>100.4)
Rx Instructions:
NTE 3GM ACETAMINOPHERN PER DAY.
acetaminophen-codeine 300-30 mg Tablet
1 tab PO Q8H PRN (Reason: MODERATE/SEVERE PAIN)
levothyroxine 100 mcg Tablet
100 mcg PO DAILY
Rx Instructions:
GIVE AT 9AM W/ MORNING MEDS
famotidine 20 mg Tablet
20 mg PO BID
magnesium hydroxide 400 mg/5 mL Suspension
30 ml PO DAILY PRN (Reason: CONSTIPATION)
Rx Instructions:
GIVE 30ML PO PRN FOR CONSTIPATION ONCE A DAY
oxybutynin chloride 5 mg Tablet
5 mg PO BID
acetaminophen 500 mg Capsule
1,000 mg PO BID
Muscle Rub 15-10 % Cream
1 applic TOPICAL BID
Rx Instructions:
B/L SHOULDERS BID
diclofenac sodium 1 % Gel
2 g TOPICAL QID
Rx Instructions:
APPLY TO RIGHT KNEE
Xarelto 20 MG tablet
20 mg PO QPM
Discontinued
cefdinir 300 mg Capsule
300 mg PO DAILY
Patient Comments:
Final dose given 07/02
Rx Instructions:
x 5 days
Discharge Orders:
Discharge Patient (As Directed); Ordered 07/05/24
Ordered By: Misty Gómez
Care Plan Goals
Care Plan Goals:
Problem: Readiness for enhanced knowledge related to diagnosis and treatment plan
Goal: Understand your diagnosis and treatment plan needs, including medications if applicable.
Instructions: Know your diagnosis, underlying causes and treatment plan options, including medications if applicable. Consult with your health care team to learn about your diagnosis and treatment plan, including medications if applicable.
Discharge Date and Time
Print Language: MOSOTHO
[2024-07-05] MEDS: DITROPAN 5 MG PO (10:58)
--- NOTE | 2024-07-05 11:19 | W.PN.CD ---
Today's Communication / Plan
-
stable on current regimen
discharge planning
Impression / Plan
-
Impression/Plan: 79 y/o female with severe DDD/cervical spine disease, severe kyphoscoliosis, chronic lymphedema, HTN, CKD3 and severe aortic valve stenosis admitted for elective TAVR.
#Severe
-Chronic.
-s/p #23 Cowan CHITRA S3 TAVR via right common femoral approach.
-Procedure complicated by dislodged 8Fr sheath, closed with perclose devices, then reaccessed lower in the TEST DEPARTMENT HELPER.
-Hgb stable this AM
-Telemetry: no arrhythmia
-Antithrombotic therapy with rivaroxaban for prior DVT
-Given hold overnight, progressive anemia and tenderness, we will check a femoral artery US to r/o PSA/AVF: read as unremarkable
#HFpEF
-Acute on chronic. Improved.
-IV furosemide 40 mg given yesterday
-transitioned back to home bumetanide today
#Hx of DVT
-Chronic.
-Therapeutic anticoagulation with rivaroxaban.
#CKD3
-Stable/improved.
-Creatinine 1.2 (prior baseline 1.9).
#Hyperlipidemia
-Chronic.
-Continue atorvastatin.
#Chronic lymphedema
#Bipolar
#Osteoporosis
Subjective/Interval History:
No complaints.
DATA:
TTE, 07/04/2024:
CONCLUSIONS
Hyperdynamic left ventricular systolic function. Left ventricular ejection
fraction is 70-75%.
Stage II diastolic dysfunction suggestive of abnormal relaxation and increased
filling pressures.
s/p TAVR. Cowan Chitra 23. Peak/mean gradients are 27/15mmHg. No aortic
regurgitation is seen.
No pericardial effusion.
Compared to 07/03/24: prior TAVR gradients were 16/9 mmHg, with trace AR.
TAVR, 07/03/2024:
Conclusions:
1. Successful placement of #23 Chitra S3 Ultra aortic valve via right transfemoral approach with no acute complications.
2. Dr. Stevens was present for all significant portions of the procedure.
Physical Exam
Vital Signs/Labs
Vital Signs
Temp Pulse Resp BP Pulse Ox
98.7 F 88 20 124/56 90
07/05/24 07:11 07/05/24 07:09 07/05/24 07:11 07/05/24 07:09 07/05/24 08:40
07/04/24 07/05/24 07/06/24
06:59 06:59 06:59
Actual Weight 100 kg 88.7 kg
07/05/24 05:13
07/05/24 05:13
PT 16.9 Sec (11.4-14.6) H 06/25/24 12:17
INR 1.36 06/25/24 12:17
APTT 32.1 Sec (23.4-35.0) 06/25/24 12:17
Magnesium 1.7 mg/dl (1.6-2.3) 07/05/24 05:13
06/25/24
12:17
Ste-I-Oysglvnremd Pept 1050
Physical Exam
Constitutional: No acute distress and Comfortable
EENT: Moist mucous membranes
Cardiovascular: Rhythm & rate is regular, Pedal edema is absent, JVD pressure is normal and Systolic murmur absent
Respiratory: Respiratory effort normal and Lungs clear to auscul.
Neuro/Psych: Alert and Oriented
Data Reviewed
-
Date of Service: July 05, 2024
EKG: Other (Tele: SR 80s)
X-Ray/CT/US/MRI/NUC/PET: Report Reviewed by me (u/s groin unremarkable)
Labs: Labs Reviewed by me
--- NOTE | 2024-07-05 11:30 | PTCARENOTE ---
Report called to [facility] at [phone]. Report given to Jojo.
[2024-07-05 12:07] VITALS: BP 135/57
== END 2024-07-05 15:16 | DRG 266 ==
LOC: IVU 09:21
PROVIDERS: Clinical Nurse Specialist Acute Care; Physician Assistant Medical; Thoracic Surgery (Cardiothoracic Vascular Surgery); ADMITTING PHYSICIAN Thoracic Surgery (Cardiothoracic Vascular Surgery); ATTENDING PHYSICIAN Thoracic Surgery (Cardiothoracic Vascular Surgery); CONSULT PHYSICIAN Internal Medicine Cardiovascular Disease; FAMILY PHYSICIAN Internal Medicine
PROC: 02RF38Z Replacement of Aortic Valve with Zooplastic Tissue, Percutaneous Approach (ICD-10-PCS; 2024-07-03)
DX: I35.0 Nonrheumatic aortic (valve) stenosis (principal); Z00.6 Encounter for examination for normal comparison and control in clinical research program; I50.43 Acute on chronic combined systolic (congestive) and diastolic (congestive) heart failure; I13.0 Hypertensive heart and chronic kidney disease with heart failure and stage 1 through stage 4 chronic kidney disease, or unspecified chronic kidney disease; M48.54XA Collapsed vertebra, not elsewhere classified, thoracic region, initial encounter for fracture; M48.56XA Collapsed vertebra, not elsewhere classified, lumbar region, initial encounter for fracture; N39.0 Urinary tract infection, site not specified; M40.292 Other kyphosis, cervical region; I89.0 Lymphedema, not elsewhere classified; E78.5 Hyperlipidemia, unspecified; F41.9 Anxiety disorder, unspecified; R91.1 Solitary pulmonary nodule; R13.10 Dysphagia, unspecified; E66.01 Morbid (severe) obesity due to excess calories; K44.9 Diaphragmatic hernia without obstruction or gangrene; K21.9 Gastro-esophageal reflux disease without esophagitis; N18.32 Chronic kidney disease, stage 3b; E03.9 Hypothyroidism, unspecified; G89.4 Chronic pain syndrome; G31.84 Mild cognitive impairment of uncertain or unknown etiology; L29.89 Other pruritus; N32.81 Overactive bladder; F31.9 Bipolar disorder, unspecified; M81.0 Age-related osteoporosis without current pathological fracture; Z68.34 Body mass index [BMI] 34.0-34.9, adult; Z79.01 Long term (current) use of anticoagulants; Z79.899 Other long term (current) drug therapy; Z79.891 Long term (current) use of opiate analgesic; Z86.718 Personal history of other venous thrombosis and embolism; Z99.3 Dependence on wheelchair
CPT/HCPCS: 93308; 33361; 36415; 71045; 71046; 80048; 80053; 81003; 81015; 82248; 83036; 83735; 83880; 85025; 85027; 85347; 85610; 85730; 86850; 86900; 86901; 86920; 87070; 87077; 87086; 87147; 87186; 93005; 93306; 93321; 93325; 93926; C1760; C1769; C1894; Q9967

== ENCOUNTER → 2024-12-30 08:17 | Outpatient (REF) | payer MEDICARE, OTHER, SELFPAY | LOC: RST 08:17 | PROVIDERS: ATTENDING PHYSICIAN Internal Medicine | DX: R13.10 Dysphagia, unspecified (principal) | CPT/HCPCS: 74230; 92611 ==